=== PATIENT | female | born 1945 | race Caucasian/White ===

== ENCOUNTER 2022-11-16 12:16 | Emergency (ER) | payer MEDICARE, MEDICAID ==
[~2022-11-16] VITALS: Ht 172.7 cm; Wt 58.9 kg
[2022-11-16] VITALS (10 sets, daily range): BP systolic 124–138; BP diastolic 60–75
[2022-11-16] MEDS ORDERED: TRAMADOL HYDROC50 M1 PO (15:45)
== END 2022-11-16 16:23 | disposition home or self-care (01) ==
LOC: ED 12:16
PROC: 2W3RX1Z Immobilization of Left Lower Leg using Splint (ICD-10-PCS; principal; 2022-11-16)
DX: S62.317A Displaced fracture of base of fifth metacarpal bone, left hand, initial encounter for closed fracture (principal); I10 Essential (primary) hypertension; J44.9 Chronic obstructive pulmonary disease, unspecified; X50.0XXA Overexertion from strenuous movement or load, initial encounter; Y92.009 Unspecified place in unspecified non-institutional (private) residence as the place of occurrence of the external cause